=== PATIENT | male | born 1975 | race Caucasian/White ===

== ENCOUNTER → 2016-12-29 | Day surgery (SDC) | payer MEDICAID ==
[~2016-12-29] VITALS: Ht 182.9 cm; Wt 94.3 kg
[~2016-12-29] MED LIST: ALLOPURINOL100 MG PO; BUPROPION HCL150 M2 PO; IBUPROFEN800 MG PO; LANSOPRAZOLE30 MG PO; METFORMIN500 MG PO; METOPROLOL SUCC50 M1 PO; PRAVACHOL 40MG40 MG PO
[2016-12-29 13:17] VITALS: BP 140/98
[2016-12-29 13:33] VITALS: BP 171/108
[2016-12-29 13:35] VITALS: BP 141/102
--- NOTE | 2016-12-29 13:39 | Procedure Note ---
Procedure detail Date of procedure: 12/29/16 Anesthesiologist: Rudy Chu Complications: None Pre-procedure diagnosis: Degenerative disease lumbar spine multiple levels. Lumbar radiculopathy symptoms. Post-procedure diagnosis: Same Indications for procedure: Very pleasant 41-year-old white male that recently came to our pain clinic complaining of chronic low back pain secondary to degenerative disease lumbar spine multiple lumbar radicular symptoms. 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 He describes his low back pain as constant, dull, aching. Patient reports 75 percent improved terms for lumbar back pain after receiving his first lumbar epidural steroid injection. Also, patient reports 50- 75 percent relief in his RIGHT hip and leg radicular symptoms. He presents her procedure clinic today for his second lumbar epidural steroid injection. Procedure detail: Procedure: Lumbar epidural steroid injection under fluoroscopy Informed consent was obtained and the risks and benefits of the procedure were explained to the patient. The patient was taken to the procedure room and noninvasive monitors placed, including noninvasive blood pressure cuff and pulse oximeter. The back was viewed using C-arm Fluoroscopy and prepped using Betadine as a cleansing solution and the L4-L5 interspace was palpated. Skin and subcutaneous tissues were anesthetized using lidocaine 1.5% and a 25-gauge needle. After this, an 18-gauge Touhy epidural needle was placed into the L4-L5 interspace and advanced using fluoroscopic guidance and loss of resistance to air until the epidural space was encountered. After confirmation of needle placement in the epidural space, with dye, a solution containing lidocaine 1.5%, 4 mL and Depo-Medrol 80 mg were incrementally injected into the lumbar epidural space. The patient tolerated the procedure well with no complications. The patient was observed in the Pain Clinic and then discharged home neurologically intact. Plan and disposition: Patient was reevaluated 10 minutes post procedure. He's doing very well. He'll return to see us in the pain clinic for further evaluation. at [id number]
[2016-12-29 13:48] VITALS: BP 148/100
== END ==
LOC: PM 12-22 13:30
PROC: 3E0R3BZ Introduction of Anesthetic Agent into Spinal Canal, Percutaneous Approach (ICD-10-PCS; principal; 2016-12-29)
PROC: 3E0R33Z Introduction of Anti-inflammatory into Spinal Canal, Percutaneous Approach (ICD-10-PCS; 2016-12-29)
DX: M51.16 Intervertebral disc disorders with radiculopathy, lumbar region (principal)
CPT/HCPCS: J1030; Q9966